=== PATIENT | female | born 1980 | race Caucasian/White ===

== ENCOUNTER 2016-07-31 17:45 | Emergency (ER) | payer MEDICAID ==
[~2016-07-31] VITALS: Wt 82.5 kg
[~2016-07-31 17:45] MED LIST: PREN1TAB13 PO; TYL500 PO
[2016-07-31] MEDS ORDERED: ONDANSETRON (ODT) 4 MG TAB ODT STA (18:24)
[2016-07-31] MEDS ORDERED: LOPERAMIDE 2 MG CAP PO ONE (18:30)
[2016-07-31] MEDS ORDERED: HYDROCODONE/APAP (5/325) TAB PO ONE (18:30)
[2016-07-31 19:27] LABS: URINE BLOOD (Dip) POC 2+ (NEGATIVE)
--- NOTE | 2016-07-31 19:34 | ERD ---
ER Documentation Chief Complaint Date/Time DATE: 07/31/16 TIME: 19:32 Chief Complaint CENTRAL ABDOMINAL PAIN SINCE THIS MORNING. NAUSEA NO VOMITING. DIARRHEA HPI 35-year-old previously healthy female presenting with diarrhea for 1 day. She states that she woke up with cramping abdominal pain today and has had about 20 episodes of watery diarrhea. Diarrhea is nonbloody. The abdominal cramping is intermittent, 10 out of 10, radiating all over her abdomen. Nothing seems to make it better or worse. She denies any associated fever, chills, nausea, vomiting. No recent travel. No recent antibiotic use. ROS All systems reviewed and are negative except as per history of present illness. Medications Home Meds Active Scripts Loperamide Hcl* (Imodium*) 2 Mg Capsule, 2 MG PO .AFTER EA LOOSE BM Y for DIARRHEA, #10 TAB Prov:CARON BLOOM MD 07/31/16 Acetaminophen* (Tylenol*) 500 Mg Tab, 500 MG PO Q4H Y for MILD PAIN LEVEL 1-3, # 14 TAB Prov:JUAN MANUEL JEFFERY MD 05/30/15 Reported Medications Vit-Iron Fumarate-FA ( Vitamins Tablet) 1 Tab Tablet, 1 TAB PO DAILY, TAB 05/30/15 Allergies Allergies: Coded Allergies: Pork/Porcine Containing Products (Verified Allergy, Mild, 09/15/15) PMhx/Soc Medical and Surgical Hx: pt denies Medical Hx, pt denies Surgical Hx History of Surgery: No Anesthesia Reaction: No Hx Neurological Disorder: No Hx Respiratory Disorders: No Hx Cardiac Disorders: No Hx Psychiatric Problems: No Hx Miscellaneous Medical Probl: No (DENIES MEDICAL AND SURGICAL HX.) Hx Alcohol Use: No Hx Substance Use: No Hx Tobacco Use: No Smoking Status: Never smoker FmHx Family History: No diabetes Physical Exam Vitals Vital Signs Date Time Temp Pulse Resp B/P Pulse Ox O2 Delivery O2 Flow Rate FiO2 07/31/16 18:08 98.5 99 20 142/76 98 Physical Exam Const: Well-appearing, well-nourished, nontoxic, mild distress secondary to pain Head: Atraumatic Eyes: Normal Conjunctiva ENT: Normal External Ears, Nose and Mouth. Neck: Full range of motion. No meningismus. Resp: Clear to auscultation bilaterally Cardio: Regular rate and rhythm, no murmurs Abd: Soft, non tender, non distended. No peritoneal signs. Normal bowel sounds Skin: No petechiae or rashes Back: No midline or flank tenderness Ext: No cyanosis, or edema Neur: Awake and alert Psych: Normal Mood and Affect Results 24 hrs Laboratory Tests Test 07/31/16 19:28 Bedside Urine Blood 2+ Bedside Urine Glucose (UA) Negative Bedside Urine Ketones (LAB) Negative Bedside Urine Leukocyte Esterase (L Negative Bedside Urine Nitrite (LAB) Negative Bedside Urine Protein (LAB) 3+ Bedside Urine pH (LAB) 5.5 Current Medications Medications (Trade) Dose Ordered Sig/David Route PRN Reason Start Time Stop Time Status Last Admin Dose Admin Acetaminophen/ Hydrocodone Bitart (Sumner (5/325)) 1 tab ONCE ONCE PO 07/31/16 18:30 07/31/16 18:31 DC 07/31/16 19:41 Loperamide HCl (Imodium Cap) 2 mg ONCE ONCE PO 07/31/16 18:30 07/31/16 18:31 DC 07/31/16 19:41 Ondansetron HCl (Zofran Odt) 4 mg ONCE STAT ODT 07/31/16 18:24 07/31/16 18:26 DC 07/31/16 19:40 Procedures/MDM Patient is presenting with generalized abdominal cramping with diarrhea. Vitals are stable and she is afebrile. I have a low suspicion for surgical abdomen. She likely has a viral gastroenteritis. Sumner, Imodium, and Zofran were given. test was negative. She has no evidence of UTI. The patients symptoms have improved while in the ED and the patient remains hemodynamically stable. Patient was able to tolerate PO. The current assessment has been explained to the patient including the fact that the etiology of the pain cannot be ruled out with certainty. Patient was advised that in the event this is early in the process of a more serious condition they may expect their symptoms to worsen and if so to return to the emergency department immediately. Patient was advised to follow up with primary care physician as soon as possible for re-evaluation within the next 1-2 days. All of the patients questions were answered. Patient verbalized understanding of plan and agrees. Advised to return to the ER for reevaluation within 12 hours if symptoms worsen. A prescription for Imodium was given. Departure Diagnosis: Primary Impression: Generalized abdominal cramping Additional Impression: Acute diarrhea Condition: Stable EKCARON LARA MD Jul 31, 2016 19:34
[2016-07-31] MEDS ORDERED: LOPE2CAP PO (20:03)
== END 2016-07-31 20:53 | disposition home or self-care (01) ==
LOC: FTE 17:45
DX: R10.84 Generalized abdominal pain (principal); R11.0 Nausea
CPT/HCPCS: 81003; Z7610; 99283

== ENCOUNTER 2017-04-02 16:58 | Emergency (ER) | payer MEDICAID ==
[~2017-04-02] VITALS: Ht 167.6 cm; Wt 82.5 kg
[~2017-04-02 16:58] MED LIST changes: +LOPE2CAP PO
[2017-04-02 17:11] VITALS: Ht 167.6 cm; Wt 82.5 kg
[2017-04-02] MEDS ORDERED: IBUP-1542 PO (19:25)
--- NOTE | 2017-04-02 19:38 | ERD ---
ER Documentation Chief Complaint Date/Time DATE: 04/02/17 TIME: 19:33 Chief Complaint 5/10 left 5th finger pain HPI This patient is a 36-year-old female presenting to the emergency department with complaints of sudden onset left pinky finger pain which she rates a 5 out of 10 on the pain scale, constant in nature, after accidentally hitting against her car door making the acrylic nail on top of her renal nail lift up off of the nail bed. She denies other injuries or symptoms at this time. ROS All systems reviewed and are negative except as per history of present illness. Medications Home Meds Active Scripts Ibuprofen* (Motrin*) 600 Mg Tab, 600 MG PO Q6, #30 TAB Prov:HUSSEIN VASQUEZ PA-C 04/02/17 Loperamide Hcl* (Imodium*) 2 Mg Capsule, 2 MG PO .AFTER EA LOOSE BM Y for DIARRHEA, #10 TAB Prov:CARON BLOOM MD 07/31/16 Acetaminophen* (Tylenol*) 500 Mg Tab, 500 MG PO Q4H Y for MILD PAIN LEVEL 1-3, # 14 TAB Prov:JUAN MANUEL JEFFERY MD 05/30/15 Reported Medications Vit-Iron Fumarate-FA ( Vitamins Tablet) 1 Tab Tablet, 1 TAB PO DAILY, TAB 05/30/15 Allergies Allergies: Coded Allergies: Pork/Porcine Containing Products (Verified Allergy, Mild, 09/15/15) PMhx/Soc Medical and Surgical Hx: pt denies Medical Hx, pt denies Surgical Hx History of Surgery: No Anesthesia Reaction: No Hx Neurological Disorder: No Hx Respiratory Disorders: No Hx Cardiac Disorders: No Hx Psychiatric Problems: No Hx Miscellaneous Medical Probl: No (DENIES MEDICAL AND SURGICAL HX.) Hx Alcohol Use: No Hx Substance Use: No Hx Tobacco Use: No Smoking Status: Never smoker Physical Exam Vitals Vital Signs Date Time Temp Pulse Resp B/P Pulse Ox O2 Delivery O2 Flow Rate FiO2 04/02/17 17:11 98.3 91 18 12/72 99 Physical Exam Const: Nontoxic, well-appearing female in no acute distress. Head: Atraumatic Eyes: Normal Conjunctiva ENT: Normal External Ears, Nose and Mouth. Back: No midline or flank tenderness Ext: There appears to be partial avulsion of the distal end of the left pinky nail away from the nailbed. There is an acrylic nail on top of the real nail which is intact. There does not appear to be damage to the nail matrix. Full range of motion of the affected finger. No ecchymosis noted proximal to the wound. Neur: Awake and alert Psych: Normal Mood and Affect Procedures/MDM 36-year-old female presenting to the emergency department with complaints of partial nail avulsion of her left pinky. X-rays are not indicated at this time as there appears to be no other injuries proximal to the nail injury. The patient was given a finger splint in the department and pressure was applied to the top of the nail. She was neurovascularly intact post splint application. She was given a prescription for ibuprofen and was advised to follow-up with her primary care physician within the next 1-2 days. Strict ER return precautions were discussed. I discussed this case with attending physician, Dr. Antonio Leonardo, who agreed with the assessment, plan, and overall ED course. Departure Diagnosis: Primary Impression: Nail avulsion, finger Encounter type: initial encounter Qualified Code: S61.309A - Avulsion of fingernail, initial encounter Condition: Fair Patient Instructions: Nail Avulsion, Partial Additional Instructions: Follow up with your PCP within the next 1-3 days for a repeat evaluation. If you require a referral to a specialist, your Primary Care Provider may be able to provide this for you. In most patient cases, a referral is not required. If you have further questions regarding this matter, please ask your Primary Care Provider. Return the the emergency department immediately if symptoms worsen or change. If you have any questions regarding medications, ask your pharmacist or us before you leave. If any adverse reactions, occur while taking your medications, discontinue the treatment and return to the emergency department immediately. If any new or worsening symptoms, uncontrolled fevers, or other unexplained symptoms occur, return to the emergency department immediately. Take your medications as directed, and complete the entire course of treatment. HUSSEIN VASQUEZ PA-C Apr 02, 2017 19:38
== END 2017-04-02 20:41 | disposition home or self-care (01) ==
LOC: FTE 16:58
DX: S61.307A Unspecified open wound of left little finger with damage to nail, initial encounter (principal); W23.0XXA Caught, crushed, jammed, or pinched between moving objects, initial encounter

== ENCOUNTER 2017-07-30 12:39 | Emergency (ER) | END 2017-07-30 19:24 | disposition left against medical advice (07) ==

== ENCOUNTER 2018-09-30 10:58 | Emergency (ER) | payer MEDICAID ==
[~2018-09-30] VITALS: Ht 157.5 cm; Wt 76.5 kg
[~2018-09-30 10:58] MED LIST changes: +IBUP-1542 PO
[2018-09-30 11:12] VITALS: BP 114/65; PULSE 72; RESP 15; Ht 157.5 cm; Wt 76.5 kg
[2018-09-30] MEDS ORDERED: IBUP-1542 PO (14:45)
--- NOTE | 2018-09-30 14:58 | ERD ---
ER Documentation Chief Complaint Chief Complaint left elbow pain x 3 weeks, denies fall or injury HPI 37-year-old female presents with complaint of left elbow pain for the last month. Patient denies any history of trauma to the elbow. Patient also states that she has joint pain in other areas such as her fingers. Denies ever being diagnosed with arthritis. Not taking any medication or treatments. States the pain is made worse with movement but as long as she does not move there is no pain. Denies any fevers, chills, numbness, tingling, weakness. Denies medical history. Denies allergies. ROS All systems reviewed and are negative except as per history of present illness. Medications Home Meds Active Scripts Ibuprofen* (Motrin*) 600 Mg Tab, 600 MG PO Q6 for pain, #30 TAB Prov:HUSSEIN DORAN 09/30/18 Ibuprofen* (Motrin*) 600 Mg Tab, 600 MG PO Q6, #30 TAB Prov:HUSSEIN VASQUEZ PA-C 04/02/17 Loperamide Hcl* (Imodium*) 2 Mg Capsule, 2 MG PO .AFTER EA LOOSE BM PRN for DIARRHEA, #10 TAB Prov:CARON BLOOM MD 07/31/16 Acetaminophen* (Tylenol*) 500 Mg Tab, 500 MG PO Q4H PRN for MILD PAIN LEVEL 1-3, #14 TAB Prov:JUAN MANUEL JEFFERY MD 05/30/15 Reported Medications Vit-Iron Fumarate-FA ( Vitamins Tablet) 1 Tab Tablet, 1 TAB PO DAILY, TAB 05/30/15 Allergies Allergies: Coded Allergies: Pork/Porcine Containing Products (Verified Allergy, Mild, 09/15/15) PMhx/Soc Medical and Surgical Hx: pt denies Medical Hx, pt denies Surgical Hx History of Surgery: No Anesthesia Reaction: No Hx Neurological Disorder: No Hx Respiratory Disorders: No Hx Cardiac Disorders: No Hx Psychiatric Problems: No Hx Miscellaneous Medical Probl: No (DENIES MEDICAL AND SURGICAL HX.) Hx Alcohol Use: No Hx Substance Use: No Hx Tobacco Use: No Smoking Status: Never smoker FmHx Family History: No diabetes, No coronary disease, No other Physical Exam Vitals Vital Signs Date Temp Pulse Resp B/P (MAP) Pulse Ox O2 O2 Flow FiO2 Time Delivery Rate 09/30/18 98.0 72 15 114/65 100 11:12 (81) Physical Exam Const: No acute distress Head: Atraumatic Eyes: Normal Conjunctiva ENT: Normal External Ears, Nose and Mouth. Neck: Full range of motion. No meningismus. Resp: Clear to auscultation bilaterally Cardio: Regular rate and rhythm, no murmurs Abd: Soft, non tender, non distended. Normal bowel sounds Skin: No petechiae or rashes Back: No midline or flank tenderness Ext: Left elbow is mildly tender to palpation over the lateral olecranon process. There is no edema, erythema, ecchymosis, or jayson deformity noted. Overlying skin is intact. Compartments are soft and warm. There is no pallor or cyanosis. Range of motion, distal pulses, and distal sensation is intact. There is normal cap refill. No cyanosis, or edema Neur: Awake and alert Psych: Normal Mood and Affect Procedures/MDM Patient's presentation is consistent with possible rheumatoid arthritis or other type of arthritis. Patient advised that since there is no indication for any kind of trauma, x-rays would not be warranted. Patient advised that this type of condition is to follow-up with primary care on an outpatient basis. Patient given Rx for ibuprofen. I have low suspicion for neurovascular compromise, compartment syndrome, fracture, osteomyelitis, septic joint, or other emergent condition. Patient discharged with strict ER precautions. Patient advised to follow up with PMD. All questions answered at discharge. Departure Diagnosis: Primary Impression: Elbow pain Laterality: left Qualified Codes: M25.522 - Pain in left elbow Condition: Stable Patient Instructions: Living with Rheumatoid Arthritis, Arthralgia Referrals: [facility] YOU HAVE RECEIVED A MEDICAL SCREENING EXAM AND THE RESULTS INDICATE THAT YOU DO NOT HAVE A CONDITION THAT REQUIRES URGENT TREATMENT IN THE EMERGENCY DEPARTMENT. FURTHER EVALUATION AND TREATMENT OF YOUR CONDITION CAN WAIT UNTIL YOU ARE SEEN IN YOUR DOCTORS OFFICE WITHIN THE NEXT 1-2 DAYS. IT IS YOUR RESPONSIBILITY TO MAKE AN APPOINTMENT FOR FOLOW-UP CARE. IF YOU HAVE A PRIMARY DOCTOR --you should call your primary doctor and schedule an appointment IF YOU DO NOT HAVE A PRIMARY DOCTOR YOU CAN CALL OUR PHYSICIAN REFERRAL HOTLINE AT IF YOU CAN NOT AFFORD TO SEE A PHYSICIAN YOU CAN CHOSE FROM THE FOLLOWING [facility] [address] [facility]. [facility] [address] [facility] [address] [facility] [address] [facility] [id number] [facility]. [facility] [address] Additional Instructions: FOLLOW UP WITH YOUR PRIMARY CARE PHYSICIAN TOMORROW.Return to this facility if you are not improving as expected. HUSSEIN DORAN Sep 30, 2018 14:58
== END 2018-09-30 14:58 | disposition left against medical advice (07) ==
LOC: FTE 10:58
DX: M25.522 Pain in left elbow (principal)
CPT/HCPCS: 99282